=== PATIENT | male | born 1950 | race Caucasian/White ===

== ENCOUNTER → 2018-03-27 | Outpatient (CLI) | payer MEDICARE, OTHER | LOC: M PAIN 10:00 | DX: M79.604 Pain in right leg (principal); M79.2 Neuralgia and neuritis, unspecified; E11.9 Type 2 diabetes mellitus without complications; Z79.899 Other long term (current) drug therapy; Z87.891 Personal history of nicotine dependence | CPT/HCPCS: G0463 ==

== ENCOUNTER → 2018-04-17 | Outpatient (CLI) | payer MEDICARE, OTHER | LOC: M PAIN 09:30 | DX: M79.604 Pain in right leg (principal); M79.2 Neuralgia and neuritis, unspecified; Z79.891 Long term (current) use of opiate analgesic; Z79.899 Other long term (current) drug therapy; Z87.891 Personal history of nicotine dependence; Z89.512 Acquired absence of left leg below knee | CPT/HCPCS: G0463 ==

== ENCOUNTER → 2018-06-13 | Outpatient (CLI) | payer MEDICARE, OTHER | LOC: M PAIN 11:30 | DX: G54.6 Phantom limb syndrome with pain (principal); M79.605 Pain in left leg; T87.89 Other complications of amputation stump; E11.9 Type 2 diabetes mellitus without complications; Z87.891 Personal history of nicotine dependence; Z79.899 Other long term (current) drug therapy; Y83.5 Amputation of limb(s) as the cause of abnormal reaction of the patient, or of later complication, without mention of misadventure at the time of the procedure | CPT/HCPCS: G0463 ==

== ENCOUNTER → 2018-06-26 | Outpatient (CLI) | payer MEDICARE, OTHER | LOC: M PAIN 15:45 | DX: M79.2 Neuralgia and neuritis, unspecified (principal); M79.605 Pain in left leg; T87.89 Other complications of amputation stump; G89.29 Other chronic pain; L90.5 Scar conditions and fibrosis of skin; E11.9 Type 2 diabetes mellitus without complications; Z79.899 Other long term (current) drug therapy; Z89.512 Acquired absence of left leg below knee; Z87.891 Personal history of nicotine dependence | CPT/HCPCS: G0463 ==

== ENCOUNTER → 2018-06-27 | Outpatient (CLI) | payer MEDICARE, OTHER ==
[~2018-06-27] MED LIST: BUPIVACAINE HCL 0.25% 30 ML VIAL As Ordered; LIDOCAINE 1% SDV INJ 30 ML VIAL As Ordered; TRIAMCINOLONE ACETONIDE SUSP 40 MG/ML VIAL (J3301) As Ordered; diazePAM 5 MG TAB As Ordered; oxyCODONE 5MG TAB As Ordered
== END ==
LOC: M PAIN 11:30
DX: L90.5 Scar conditions and fibrosis of skin (principal); E11.9 Type 2 diabetes mellitus without complications; Z79.899 Other long term (current) drug therapy; Z87.891 Personal history of nicotine dependence
CPT/HCPCS: J3301

== ENCOUNTER → 2018-07-18 | Outpatient (CLI) | payer MEDICARE, OTHER | LOC: M PAIN 09:30 | DX: G57.92 Unspecified mononeuropathy of left lower limb (principal); G89.29 Other chronic pain; G54.6 Phantom limb syndrome with pain; L90.5 Scar conditions and fibrosis of skin; E11.9 Type 2 diabetes mellitus without complications; Z79.899 Other long term (current) drug therapy; Z87.891 Personal history of nicotine dependence | CPT/HCPCS: G0463 ==

== ENCOUNTER → 2018-07-23 | Outpatient (CLI) | payer MEDICARE, OTHER ==
[~2018-07-23] MED LIST changes: +ISOVUE-M 300 61% 15ML VIAL (Q9967) As Ordered; +MIDAZOLAM INJ 2 MG/2 ML VIAL (J2250) As Ordered; -diazePAM 5 MG TAB As Ordered; +fentaNYL 100 MCG/2 ML INJECTION (J3010) As Ordered; -oxyCODONE 5MG TAB As Ordered
[2018-07-23 14:20] LABS: BEDSIDE GLUCOSE 104 MG/DL (80-115)
== END ==
LOC: M PAIN 13:00
DX: G89.29 Other chronic pain (principal); G57.92 Unspecified mononeuropathy of left lower limb; E11.9 Type 2 diabetes mellitus without complications; Z79.899 Other long term (current) drug therapy; Z89.512 Acquired absence of left leg below knee
CPT/HCPCS: J3301

== ENCOUNTER → 2018-09-16 | Outpatient (CLI) | payer MEDICARE, OTHER ==
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
== END ==
LOC: M PAIN 13:15
PROVIDERS: ATTEND Anesthesiology
DX: M79.605 Pain in left leg (principal); T87.89 Other complications of amputation stump; M79.2 Neuralgia and neuritis, unspecified; E11.9 Type 2 diabetes mellitus without complications; E78.00 Pure hypercholesterolemia, unspecified; Z79.899 Other long term (current) drug therapy; Z87.891 Personal history of nicotine dependence

== ENCOUNTER → 2018-11-24 | Outpatient (CLI) | payer MEDICARE, OTHER ==
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
== END ==
LOC: M PAIN 14:30
PROVIDERS: ATTEND Anesthesiology
DX: M79.605 Pain in left leg (principal); T87.89 Other complications of amputation stump; G89.29 Other chronic pain; E11.9 Type 2 diabetes mellitus without complications; E78.00 Pure hypercholesterolemia, unspecified; Z79.84 Long term (current) use of oral hypoglycemic drugs; Z79.899 Other long term (current) drug therapy; Z87.891 Personal history of nicotine dependence

== ENCOUNTER → 2018-12-29 | Outpatient (CLI) | payer MEDICARE, OTHER ==
[~2018-12-29] MED LIST changes: -BUPIVACAINE HCL 0.25% 30 ML VIAL As Ordered; +FERR32TA PO; -ISOVUE-M 300 61% 15ML VIAL (Q9967) As Ordered; -LIDOCAINE 1% SDV INJ 30 ML VIAL As Ordered; +METF500T4 PO; -MIDAZOLAM INJ 2 MG/2 ML VIAL (J2250) As Ordered; +SIMV40TA2 PO; +TRAZ-160 PO; -TRIAMCINOLONE ACETONIDE SUSP 40 MG/ML VIAL (J3301) As Ordered; -fentaNYL 100 MCG/2 ML INJECTION (J3010) As Ordered
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
== END ==
LOC: M PAIN 11:45
PROVIDERS: ATTEND Anesthesiology
DX: M79.605 Pain in left leg (principal); T87.89 Other complications of amputation stump; M79.2 Neuralgia and neuritis, unspecified; G89.29 Other chronic pain; E11.9 Type 2 diabetes mellitus without complications; E78.00 Pure hypercholesterolemia, unspecified; Z79.84 Long term (current) use of oral hypoglycemic drugs; Z79.899 Other long term (current) drug therapy; Z87.891 Personal history of nicotine dependence

== ENCOUNTER 2019-01-19 10:26 | Day surgery (SDC) | payer MEDICARE, OTHER ==
[~2019-01-19] VITALS: Ht 180.3 cm; Wt 92.9 kg
[~2019-01-19 10:26] MED LIST changes: +D 1010004 PO; +GABA-843 PO; +HYDR-4571 PO; +LIDOCAINE 2% INJ 100 MG/5 ML SDV (FOR ANES.) As Ordered ONE; +MIDAZOLAM INJ 2 MG/2 ML VIAL (J2250) As Ordered ONE; +ONDANSETRON 4MG/2ML VIAL (J2405) As Ordered ONE; +PROPOFOL 200 MG/20 ML VIAL As Ordered ONE; +[UNRECOGNIZED DRUG - CODE] PO; +fentaNYL 100 MCG/2 ML INJECTION (J3010) As Ordered ONE
[2019-01-19] MEDS ORDERED: LR 1,000 ML IV ONE (10:45)
[2019-01-19] MEDS ORDERED: ceFAZolin SOD 1 GM in D5W MINI-BAG PLUS 50 ML IV ONE ×2 (11:00→21:00)
[2019-01-19] MEDS ORDERED: LIDOCAINE W/EPINEPHRINE 1% 20ML VIAL As Ordered ONE (11:33)
[2019-01-19 12:59] LABS: BASO # 0.1 10^3/uL (0.0-0.2); BASO % 0.8 % (0.0-1.0); EOS # 0.1 10^3/uL (0.0-0.50); EOS % 1.5 % (0.0-3.0); HEMATOCRIT 35.3 % (42.0-52.0); HEMOGLOBIN 11.9 g/dl (13.5-17.5); LYMPH # 1.9 10^3/uL (1.5-4.5); LYMPH % 25.2 % (24.0-44.0); MEAN CORPUSCULAR HEMOGLOBIN 34.7 pg (27.0-33.0); MEAN CORPUSCULAR HGB CONC 33.7 g/dl (32.0-36.5); MEAN CORPUSCULAR VOLUME 102.9 fl (80.0-96.0); MONO # 0.7 10^3/uL (0.0-0.8); NEUTROPHILS # 4.8 10^3/uL (1.8-7.7); NEUTROPHILS % 62.8 % (36.0-66.0); PLATELET COUNT, AUTOMATED 339 10^3/uL (150-450); RED BLOOD COUNT 3.43 10^6/uL (4.30-6.10); WHITE BLOOD COUNT 7.6 10^3/uL (4.0-10.0)
[2019-01-19 13:10] LABS: INR 0.98; PROTHROMBIN TIME 13.1 SECONDS (12.1-14.4)
[2019-01-19] MEDS ORDERED: NORCO, ANEXSIA 5/325MG TABLET (HYDROcodone/ACETAMINOPHEN) PO PRN (15:30)
[2019-01-19] MEDS ORDERED: PERCOCET 5MG/325MG TAB PO PRN (15:30)
[2019-01-19] MEDS ORDERED: LR 1,000 ML IV SCH (15:30)
[2019-01-19] MEDS ORDERED: fentaNYL 100 MCG/2 ML INJECTION (J3010) IV PRN (15:30)
[2019-01-19] MEDS ORDERED: ONDANSETRON 4MG/2ML VIAL (J2405) IV PRN (15:30)
--- NOTE | 2019-01-19 15:54 | REP ---
Partial thoracic spine: Single view. History: Neuralgia. Pain in the left leg. 9 minutes 19 seconds of fluoroscopy time is reported. Findings: A single last image hold fluoroscopically obtained spot radiograph of the lower thoracic spine documents dorsal column stimulator lead position. Electronically Signed by Vance Ramirez MD 01/19/2019 07:33 P
[2019-01-19 16:15] VITALS: BP 136/68
[2019-01-19] MEDS ORDERED: GLUCAGON FOR INJ 1 MG VIAL (J1610) SC PRN (16:30)
[2019-01-19] MEDS ORDERED: GLUCOSE 4 GM CHEW TABLET PO PRN (16:30)
[2019-01-19] MEDS ORDERED: DEXTROSE 50% 50 ML SYRINGE IV PRN (16:30)
[2019-01-19 16:45] VITALS: BP 132/78
[2019-01-19] MEDS: FERROUS GLUCONATE 324 MG TAB PO SCH (16:50)
[2019-01-19] MEDS: VITAMIN D 1,000 INTERNATIONAL UNITS TABLET PO SCH (16:50)
[2019-01-19] MEDS: HumaLOG INSULIN (NovoLOG) PER UNIT SC SCH (17:30)
--- NOTE | 2019-01-19 17:35 | CR ---
DATE OF CONSULTATION: 01/19/2019 REFERRING PHYSICIAN: Dr. Harley PRIMARY CARE PROVIDER: Dr. Carl REASON FOR CONSULTATION: Medical management. HISTORY OF PRESENT ILLNESS: The patient is a 68-year-old male with a past medical history significant for diabetes, dyslipidemia, who presented to [facility] on 01/19/2019 for spinal cord stimulator for his chronic stump pain. The patient is being followed with the pain clinic for his left stump. The patient had a left below knee amputation due to trauma in [place]. The patient tolerated the procedure well. At the time of the encounter, the patient denies any acute complaints. The patient stated that he feels like he is his normal self. ALLERGIES: No known drug allergies. PAST MEDICAL HISTORY: 1. Diabetes. 2. Dyslipidemia. PAST SURGICAL HISTORY: 1. Left below knee amputation. SOCIAL HISTORY: The patient quit smoking more than 40 years ago. The patient used to smoke one pack a day for 20 years. The patient admitted that he had a very heavy alcohol consumption history in the past. He admits that he was an alcoholic many years ago but he quit drinking in 1981. The patient had tried recreational drugs when he was in [place], however, in the past 30 years or more he has not had any usage of the illicit drugs. REVIEW OF SYSTEMS: GENERAL: No fever. No chills. HEENT: No vision changes. No auditory changes. CARDIOVASCULAR: No chest pain. No palpitations. RESPIRATORY: No shortness of breath. No cough. No sputum production. GASTROINTESTINAL: No nausea. No vomiting. No abdominal pain. MUSCULOSKELETAL: The patient has chronic pain at the left stump. The patient is getting the spinal cord stimulator today by Dr. Harley. NEUROLOGIC: Denied any numbness or tingling. OBJECTIVE: VITAL SIGNS: Temperature 98, pulse 54, respirations 18, blood pressure 134/83, pulse oximetry 97% on room air. GENERAL: No sign of acute distress. Alert and oriented times three. HEENT: Normocephalic, atraumatic. Extraocular motors are grossly intact. CARDIOVASCULAR: Positive S1, S2. Regular rate. LUNGS: Clear to auscultation bilaterally. ABDOMEN: Soft, nontender, nondistended. Bowel sounds present. EXTREMITIES: The patient has a left below knee amputation. No lower extremity swelling. NEUROLOGIC: Sensation to fine touch is grossly intact. Muscle strength 5/5. LABORATORY DATA: WBC is 7.6, hemoglobin 11.9, hematocrit 35.3, platelet count is 339. PT is 13.1, INR is 0.98, PTT is 28. ASSESSMENT AND PLAN: 1. Chronic stump pain. The patient had a left below knee amputation. The patient had trauma when he was in [place] resulting in below knee amputation. Spinal cord stimulator placement by Dr. Harley. We will defer the postsurgical care, such as diet, activity level, pain control per pain management team. 2. Diabetes. The patient will be on consistent carbohydrate diet. The patient will be on sliding scale. 3. Dyslipidemia. Continue statin. 4. Deep vein thrombosis (DVT) prophylaxis. Per primary team. MTDD
[2019-01-19 17:45] VITALS: BP 145/75
[2019-01-19 18:42] VITALS: BP 131/94
[2019-01-19] MEDS: GABAPENTIN 300 MG CAP PO SCH (20:54)
[2019-01-19] MEDS: NORCO, ANEXSIA 5/325MG TABLET (HYDROcodone/ACETAMINOPHEN) PO PRN (20:55)
[2019-01-19] MEDS ORDERED: HumaLOG INSULIN (NovoLOG) PER UNIT SC SCH (21:00)
[2019-01-19 22:00] VITALS: BP 168/96
[2019-01-20 02:00] VITALS: BP 134/75
[2019-01-20] MEDS ORDERED: ceFAZolin SOD 1 GM in D5W MINI-BAG PLUS 50 ML IV ONE (05:00)
[2019-01-20 06:00] VITALS: BP 174/83
[2019-01-20 06:19] LABS: HEMATOCRIT 34.1 % (42.0-52.0); HEMOGLOBIN 11.3 g/dl (13.5-17.5); MEAN CORPUSCULAR HEMOGLOBIN 34.1 pg (27.0-33.0); MEAN CORPUSCULAR HGB CONC 33.1 g/dl (32.0-36.5); PLATELET COUNT, AUTOMATED 318 10^3/uL (150-450); RED BLOOD COUNT 3.31 10^6/uL (4.30-6.10); WHITE BLOOD COUNT 6.9 10^3/uL (4.0-10.0)
[2019-01-20 06:46] LABS: BLOOD UREA NITROGEN 15 MG/DL (7-18); CALCIUM LEVEL 8.4 MG/DL (8.8-10.2); CARBON DIOXIDE LEVEL 28 MEQ/L (21-32); CHLORIDE LEVEL 108 MEQ/L (98-107); CREATININE FOR GFR 0.72 MG/DL (0.70-1.30); GLOMERULAR FILTRATION RATE > 60.0 (>49); GLUCOSE, FASTING 104 MG/DL (70-100); POTASSIUM SERUM 4.1 MEQ/L (3.5-5.1); SODIUM LEVEL 140 MEQ/L (136-145); THYROID STIMULATING HORMONE 0.812 uIU/ML (0.358-3.740)
[2019-01-20 07:15] LABS: HEMOGLOBIN A1c 6.3 %
[2019-01-20] MEDS: HumaLOG INSULIN (NovoLOG) PER UNIT SC SCH (07:30)
[2019-01-20] MEDS: FERROUS GLUCONATE 324 MG TAB PO SCH (08:49)
[2019-01-20] MEDS: VITAMIN D 1,000 INTERNATIONAL UNITS TABLET PO SCH (08:49)
[2019-01-20] MEDS: GABAPENTIN 300 MG CAP PO SCH (08:49)
[2019-01-20] MEDS: NORCO, ANEXSIA 5/325MG TABLET (HYDROcodone/ACETAMINOPHEN) PO PRN (08:58)
[2019-01-20] MEDS ORDERED: DULoxetine 30 MG CAP (CYMBALTA) PO SCH (09:00)
[2019-01-20] MEDS ORDERED: SIMVASTATIN 40 MG TAB PO SCH (09:00)
--- NOTE | 2019-01-20 10:20 | IPNPDOC ---
Date Seen The patient was seen on 01/20/19. Progress Note SUBJECTIVE: No issues overnight. stimulator to be programmed prior to discharge. OBJECTIVE: VITAL SIGNS: pls see below GENERAL: No sign of acute distress. Alert and oriented times three. HEENT: Normocephalic, atraumatic. Extraocular motors are grossly intact. CARDIOVASCULAR: Positive S1, S2. Regular rate. LUNGS: Clear to auscultation bilaterally. ABDOMEN: Soft, nontender, nondistended. Bowel sounds present. EXTREMITIES: The patient has a left below knee amputation. No lower extremity swelling. NEUROLOGIC: Sensation to fine touch is grossly intact. Muscle strength 5/5. LABORATORY DATA: pls see below On admission: WBC is 7.6, hemoglobin 11.9, hematocrit 35.3, platelet count is 339. PT is 13.1, INR is 0.98, PTT is 28. ASSESSMENT AND PLAN:The patient is a 68-year-old male with a past medical history significant for diabetes, dyslipidemia, who presented to [facility] on 01/19/2019 for spinal cord stimulator for his chronic stump pain. The patient is being followed with the pain clinic for his left stump. The patient had a left below knee amputation due to trauma in [place]. The patient tolerated the procedure well. At the time of the encounter, the patient denies any acute complaints. The patient stated that he feels like he is his normal self. 1. Chronic stump pain.s/p Spinal cord stimulator placement by Dr. Harley. The patient had a left below knee amputation. The patient had trauma when he was in [place] resulting in below knee amputation. s/p Spinal cord stimulator placement by Dr. Harley. We will defer the postsurgical care, such as diet, activity level, pain control per pain management team. 2. Diabetes. The patient will be on consistent carbohydrate diet. The patient will be on sliding scale. 3. Dyslipidemia. Continue statin. 4. Deep vein thrombosis (DVT) prophylaxis. Per primary team. disposition: dc home if cleared by pain mgt. A-FIB/CHADSVASC A-FIB History Current/History of A-Fib/PAF?: No Current Oral Anticoagulant The: No VS, I&O, 24H, Fishbone Vital Signs/I&O Vital Signs Date Time Temp Pulse Resp B/P (MAP) Pulse Ox O2 Delivery O2 Flow Rate FiO2 01/20/19 08:58 14 5/14/19 06:00 98.3 48 174/83 (113) 98 I&O- Last 24 Hours up to 6 AM 01/20/19 06:00 Intake Total 2300 ml Output Total 1400 ml Balance 900 ml Laboratory Data 24H LABS Laboratory Tests 2 01/19/19 11:11: Bedside Glucose (Misc Panel) 112 01/19/19 12:32: Immature Granulocyte % (Auto) 0.7, White Blood Count 7.6, Red Blood Count 3.43L, Hemoglobin 11.9L, Hematocrit 35.3L, Mean Corpuscular Volume 102.9H, Mean Corpuscular Hemoglobin 34.7H, Mean Corpuscular Hemoglobin Concent 33.7, Red Cell Distribution Width 13.5, Platelet Count 339, Neutrophils (%) (Auto) 62.8, Lymphocytes (%) (Auto) 25.2, Monocytes (%) (Auto) 9.0H, Eosinophils (%) (Auto) 1.5, Basophils (%) (Auto) 0.8, Neutrophils # (Auto) 4.8, Lymphocytes # (Auto) 1.9, Monocytes # (Auto) 0.7, Eosinophils # (Auto) 0.1, Basophils # (Auto) 0.1, Nucleated Red Blood Cells % (auto) 0.0, Prothrombin Time 13.1, Prothromb Time International Ratio 0.98, Activated Partial Thromboplast Time 28.0 01/19/19 16:42: Bedside Glucose (Misc Panel) 92 01/19/19 19:38: Bedside Glucose (Misc Panel) 128H 01/20/19 05:14: Nucleated Red Blood Cells % (auto) 0.4H, Anion Gap 4L, Glomerular Filtration Rate > 60.0, Estimated Mean Plasma Glucose 134H, Hemoglobin A1c 6.3, Blood Urea Nitrogen 15, Creatinine 0.72, Sodium Level 140, Potassium Level 4.1, Chloride Level 108H, Carbon Dioxide Level 28, Calcium Level 8.4L, Thyroid Stimulating Hormone (TSH) 0.812 CBC/BMP Laboratory Tests 01/19/19 12:32 Red Blood Count 3.43 L, Mean Corpuscular Volume 102.9 H, Mean Corpuscular Hemoglobin 34.7 H, Mean Corpuscular Hemoglobin Concent 33.7, Red Cell Distribution Width 13.5, Neutrophils (%) (Auto) 62.8, Lymphocytes (%) (Auto) 25.2, Monocytes (%) (Auto) 9.0 H, Eosinophils (%) (Auto) 1.5, Basophils (%) (Auto) 0.8, Neutrophils # (Auto) 4.8, Lymphocytes # (Auto) 1.9, Monocytes # (Auto) 0.7, Eosinophils # (Auto) 0.1, Basophils # (Auto) 0.1 01/20/19 05:14 Red Blood Count 3.31 L, Mean Corpuscular Volume 103.0 H, Mean Corpuscular Hemoglobin 34.1 H, Mean Corpuscular Hemoglobin Concent 33.1, Red Cell Distribution Width 13.4, Calcium Level 8.4 L CHELO BANUELOS MD January 20, 2019 10:20
--- NOTE | 2019-01-20 10:24 | DS.PDOC ---
Discharge Summary General Date of Admission 01/19/19 Date of Discharge 01/20/19 Discharge Summary PROCEDURES PERFORMED DURING STAY:SPINAL CORD STIMULATOR 01/19/19 PUTTY GLAZER: DR CASTORENA, ANESTHESIA PAIN SERVICE DISCHARGE DIAGNOSES: CHRONIC LOWER EXTREMITY STUMP PAIN S/P BKA S/P SPINAL CORD STIMULATOR PLACEMENT 01/19/19 DIABETES DYSLIPIDEMIA DISCHARGE MEDICATIONS: PLS SEE BELOW DISCHARGE INSTRUCTIONS: POSTOP MGT PER ANESTHESIA DR. CASTORENA HISTORY OF PRESENTING ILLNESS: The patient is a 68-year-old male with a past medical history significant for diabetes, dyslipidemia, who presented to [facility] on 01/19/2019 for spinal cord stimulator for his chronic stump pain. The patient is being followed with the pain clinic for his left stump. The patient had a left below knee amputation due to trauma in [place]. The patient tolerated the procedure well. At the time of the encounter, the patient denies any acute complaints. The patient stated that he feels like he is his normal self. HOSPITAL COURSE: 1. Chronic stump pain.s/p Spinal cord stimulator placement by Dr. Castorena on 01/19/19.. The patient had a left below knee amputation. The patient had trauma when he was in [place] resulting in below knee amputation. s/p Spinal cord stimulator placement by Dr. Castorena. We will defer the postsurgical care, such as diet, activity level, pain control per pain management team. 2. Diabetes. The patient will be on consistent carbohydrate diet. The patient will be on sliding scale. 3. Dyslipidemia. Continue statin. 4. Deep vein thrombosis (DVT) prophylaxis. Per primary team. VITAL SIGNS: pls see below GENERAL: No sign of acute distress. Alert and oriented times three. HEENT: Normocephalic, atraumatic. Extraocular motors are grossly intact. CARDIOVASCULAR: Positive S1, S2. Regular rate. LUNGS: Clear to auscultation bilaterally. ABDOMEN: Soft, nontender, nondistended. Bowel sounds present. EXTREMITIES: The patient has a left below knee amputation. No lower extremity swelling. NEUROLOGIC: Sensation to fine touch is grossly intact. Muscle strength 5/5. LABORATORY DATA: pls see below On admission: WBC is 7.6, hemoglobin 11.9, hematocrit 35.3, platelet count is 339. PT is 13.1, INR is 0.98, PTT is 28. IMAGING STUDIES: PLS SEE BELOW TIME SPENT ON DISCHARGE: 30 minutes. Vital Signs/I&Os Vital Signs Date Time Temp Pulse Resp B/P (MAP) Pulse Ox O2 Delivery O2 Flow Rate FiO2 01/20/19 08:58 14 01/20/19 06:00 98.3 48 174/83 (113) 98 I&O- Last 24 Hours up to 6 AM 01/20/19 06:00 Intake Total 2300 ml Output Total 1400 ml Balance 900 ml Laboratory Data Labs 24H Laboratory Tests 2 01/19/19 11:11: Bedside Glucose (Misc Panel) 112 01/19/19 12:32: Immature Granulocyte % (Auto) 0.7, White Blood Count 7.6, Red Blood Count 3.43L, Hemoglobin 11.9L, Hematocrit 35.3L, Mean Corpuscular Volume 102.9H, Mean Corpuscular Hemoglobin 34.7H, Mean Corpuscular Hemoglobin Concent 33.7, Red Cell Distribution Width 13.5, Platelet Count 339, Neutrophils (%) (Auto) 62.8, Lymphocytes (%) (Auto) 25.2, Monocytes (%) (Auto) 9.0H, Eosinophils (%) (Auto) 1.5, Basophils (%) (Auto) 0.8, Neutrophils # (Auto) 4.8, Lymphocytes # (Auto) 1.9, Monocytes # (Auto) 0.7, Eosinophils # (Auto) 0.1, Basophils # (Auto) 0.1, Nucleated Red Blood Cells % (auto) 0.0, Prothrombin Time 13.1, Prothromb Time International Ratio 0.98, Activated Partial Thromboplast Time 28.0 01/19/19 16:42: Bedside Glucose (Misc Panel) 92 01/19/19 19:38: Bedside Glucose (Misc Panel) 128H 01/20/19 05:14: Nucleated Red Blood Cells % (auto) 0.4H, Anion Gap 4L, Glomerular Filtration Rate > 60.0, Estimated Mean Plasma Glucose 134H, Hemoglobin A1c 6.3, Blood Urea Nitrogen 15, Creatinine 0.72, Sodium Level 140, Potassium Level 4.1, Chloride Level 108H, Carbon Dioxide Level 28, Calcium Level 8.4L, Thyroid Stimulating Hormone (TSH) 0.812 CBC/BMP Laboratory Tests 01/19/19 12:32 Red Blood Count 3.43 L, Mean Corpuscular Volume 102.9 H, Mean Corpuscular Hemoglobin 34.7 H, Mean Corpuscular Hemoglobin Concent 33.7, Red Cell Distr ibution Width 13.5, Neutrophils (%) (Auto) 62.8, Lymphocytes (%) (Auto) 25.2, Monocytes (%) (Auto) 9.0 H, Eosinophils (%) (Auto) 1.5, Basophils (%) (Auto) 0.8, Neutrophils # (Auto) 4.8, Lymphocytes # (Auto) 1.9, Monocytes # (Auto) 0.7, Eosinophils # (Auto) 0.1, Basophils # (Auto) 0.1 01/20/19 05:14 Red Blood Count 3.31 L, Mean Corpuscular Volume 103.0 H, Mean Corpuscular Hem oglobin 34.1 H, Mean Corpuscular Hemoglobin Concent 33.1, Red Cell Distribution Width 13.4, Calcium Level 8.4 L FSBS Laboratory Tests Test 01/19/19 11:11 01/19/19 16:42 01/19/19 19:38 Range/Units Bedside Glucose (Misc Panel) 112 92 128 80-115 MG/DL Discharge Medications Scheduled Cholecalciferol (Vitamin D3) (Vitamin D3) 1,000 Unit Capsule, 1,000 UNIT PO DAILY, (Reported) Ferrous Gluconate (Ferrous Gluconate) 324 Mg Tablet, 324 MG PO DAILY, (Reported) Folic Acid/Mv,Iron,Min/Lutein (Certa Plus Tablet) 1 Each Tablet, 1 TAB PO DAILY, (Reported) Gabapentin (Gabapentin) 300 Mg Capsule, 600 MG PO TID, (Reported) Metformin HCl (Metformin HCl ER) 500 Mg Tab.er.24h, 500 MG PO DAILY, (Reported) Simvastatin (Simvastatin) 40 Mg Tablet, 40 MG PO DAILY, (Reported) Trazodone HCl (Trazodone HCl) 50 Mg Tablet, 50 MG PO DAILY, (Reported) Allergies Coded Allergies: No Known Allergies (Unverified , 01/19/19) CHELO BANUELOS MD January 20, 2019 10:24
--- NOTE | 2019-01-26 20:46 | ROPAIN ---
DATE OF PROCEDURE: 01/19/2019 PREOPERATIVE DIAGNOSES: 1. Left lower extremity neuralgia. 2. Left lower extremity pain. POSTOPERATIVE DIAGNOSES: 1. Left lower extremity neuralgia. 2. Left lower extremity pain. PROCEDURE: Spinal column stimulator trial. SURGEON: Dr. Dionicio Harley ANESTHESIA: Local with monitored anesthesia care. PREOPERATIVE NOTE: Mr. Brown is a 68-year-old male patient with history of left lower extremity pain. Patient suffered an amputation of the left leg and he started to develop stump pain with phantom pain and also pain at the left lower extremity. He has tried multiple medications and interventional therapy and the pain has persisted. We have agreed with the patient in doing a spinal column stimulator trial, the reason why he is in the operating room today. Patient denies fever, chills, changes in urinary or bowel control. PROCEDURE NOTE: After consent was taken, patient was brought to the procedure room and placed in prone position. The thoracolumbar was cleaned with Betadine solution and draped aseptically. Procedure was done under sterile conditions. Patient received cefazolin 1 gram intravenous (IV). Target point was selected at the intralaminar level of T12-L1. Lidocaine 1% was used to numb the skin and the subcutaneous tissue below it. An Epimed Tuohy needle was advanced until the right lamina of L1 was touched and then by the loss of resistance technique the epidural space was reached 7 cm deep into the skin by the loss of resistance technique. An 8-contact lead from opvizor was advanced through this needle and advanced at the posterior and medial aspect of the epidural space until we reached the level of T8. A decision was made to place a second lead. Target was selected at the left lamina of L1. Local anesthesia was used. A second Epimed needle, 17-gauge, was advanced until the left lamina was touched, and then by the loss of resistance technique the epidural space was reached 7 cm deep into the skin by the loss of resistance technique. A second 8-contact from opvizor was advanced through the second needle and advanced parallel to the first one at the level of T8. Extension cables were attached to the leads, which were attached to the computer system of opvizor and we started stimulation. Position of the leads were changed. We also changed impedance, volt issues, contact of the leads used. Final position of the leads were in the position of T8, T9 and T10. We made x-ray films of the position of the leads for further reference. When proper stimulation of the pain was achieved, we removed the extension cable, removed the stylus and secured the leads to the patient's skin using first Steri-Strips and then Tegaderm. There was no evidence of blood, paresthesias or cerebrospinal fluid. There were no complications during the procedure. Patient is sent to the recovery room to start the trial. LUISA
== END 2019-01-20 10:50 | disposition home or self-care (01) ==
LOC: M SDC 10:26 → M MS5PR 16:10 → M SDC 01-20 10:50
PROVIDERS: ATTEND Anesthesiology
DX: G57.92 Unspecified mononeuropathy of left lower limb (principal); M79.605 Pain in left leg; E11.9 Type 2 diabetes mellitus without complications; E78.5 Hyperlipidemia, unspecified; D64.9 Anemia, unspecified; Z79.899 Other long term (current) drug therapy; Z79.84 Long term (current) use of oral hypoglycemic drugs; Z89.512 Acquired absence of left leg below knee; Z87.891 Personal history of nicotine dependence; Z87.81 Personal history of (healed) traumatic fracture
CPT/HCPCS: 36415; 63650; 80048; 83036; 84443; 85025; 85027; 85610; 85730; C1778; J0690; J2250; J2405; J3010

== ENCOUNTER → 2019-01-23 | Outpatient (CLI) | payer MEDICARE, OTHER ==
[~2019-01-23] MED LIST changes: -LIDOCAINE 2% INJ 100 MG/5 ML SDV (FOR ANES.) As Ordered ONE; -MIDAZOLAM INJ 2 MG/2 ML VIAL (J2250) As Ordered ONE; -ONDANSETRON 4MG/2ML VIAL (J2405) As Ordered ONE; -PROPOFOL 200 MG/20 ML VIAL As Ordered ONE; -fentaNYL 100 MCG/2 ML INJECTION (J3010) As Ordered ONE
--- NOTE | 2019-01-24 07:19 | REP ---
Partial thoracic spine series: Two views. History: Lead pole. 7 seconds of fluoroscopy time is reported. Findings: Two last image hold fluoroscopically obtained spot radiographs of the thoracolumbar junction document dorsal column stimulator lead position. Electronically Signed by Vance Ramirez MD 01/24/2019 11:48 A
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
== END ==
LOC: M PAIN 10:30
PROVIDERS: ATTEND Anesthesiology
DX: M79.605 Pain in left leg (principal); T87.89 Other complications of amputation stump; E11.9 Type 2 diabetes mellitus without complications; E78.00 Pure hypercholesterolemia, unspecified; Z79.84 Long term (current) use of oral hypoglycemic drugs; Z79.899 Other long term (current) drug therapy; Z87.891 Personal history of nicotine dependence

== ENCOUNTER → 2019-03-02 | Outpatient (CLI) | payer MEDICARE, OTHER ==
[~2019-03-02] MED LIST changes: -TRAZ-160 PO; +TRAZ-252 PO
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
== END ==
LOC: M PAIN 09:30
PROVIDERS: ATTEND Anesthesiology
DX: M79.605 Pain in left leg (principal); T87.89 Other complications of amputation stump; E11.9 Type 2 diabetes mellitus without complications; D64.9 Anemia, unspecified; E78.00 Pure hypercholesterolemia, unspecified; Z87.891 Personal history of nicotine dependence; Z89.512 Acquired absence of left leg below knee; Z79.891 Long term (current) use of opiate analgesic; Z79.84 Long term (current) use of oral hypoglycemic drugs; Z79.899 Other long term (current) drug therapy

== ENCOUNTER → 2019-04-02 | Outpatient (CLI) | payer MEDICARE, OTHER ==
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
== END ==
LOC: M PAIN 08:30
PROVIDERS: ATTEND Anesthesiology
DX: M79.605 Pain in left leg (principal); T87.89 Other complications of amputation stump; M79.2 Neuralgia and neuritis, unspecified; E11.9 Type 2 diabetes mellitus without complications; D64.9 Anemia, unspecified; E78.00 Pure hypercholesterolemia, unspecified; Z87.891 Personal history of nicotine dependence; Z79.891 Long term (current) use of opiate analgesic; Z79.84 Long term (current) use of oral hypoglycemic drugs; Z79.899 Other long term (current) drug therapy

== ENCOUNTER 2019-04-20 10:37 | Day surgery (SDC) | payer MEDICARE, OTHER ==
[~2019-04-20] VITALS: Ht 182.9 cm; Wt 91.2 kg
[~2019-04-20 10:37] MED LIST changes: +LR 1,000 ML IV ONE; +ceFAZolin SOD 1 GM in D5W MINI-BAG PLUS 50 ML IV ONE
[2019-04-20] MEDS ORDERED: fentaNYL 100 MCG/2 ML INJECTION (J3010) As Ordered ONE ×2 (10:54→13:25)
[2019-04-20] MEDS ORDERED: PROPOFOL 200 MG/20 ML VIAL As Ordered ONE (10:54)
[2019-04-20] MEDS ORDERED: MIDAZOLAM INJ 2 MG/2 ML VIAL (J2250) As Ordered ONE ×2 (10:54→12:29)
[2019-04-20] MEDS ORDERED: LIDOCAINE W/EPINEPHRINE 1% 20ML VIAL As Ordered ONE (11:51)
[2019-04-20] MEDS ORDERED: ACETAMINOPHEN 1000MG 100ML IV BTL (OFIRMEV) (J0131 PER 10MG) As Ordered ONE (13:26)
--- NOTE | 2019-04-20 14:34 | REP ---
Partial thoracic spine series: Two views. History: Pain in the left leg. Neuralgia. 13 minutes 9 seconds of fluoroscopy time is reported. Findings: A sequence of two last image hold fluoroscopically obtained spot radiographs of the lower thoracic spine document dorsal column stimulator lead position. Electronically Signed by Vance Ramirez MD 04/20/2019 02:25 P
[2019-04-20] MEDS ORDERED: METOCLOPRAMIDE INJ 10MG/2ML VIAL (J2765) IV PRN (14:45)
[2019-04-20] MEDS ORDERED: ONDANSETRON 4MG/2ML VIAL (J2405) IV PRN (14:45)
[2019-04-20] MEDS ORDERED: MEPERIDINE INJ 25 MG/ML VIAL (J2175) IV PRN (14:45)
[2019-04-20] MEDS ORDERED: NORCO, ANEXSIA 5/325MG TABLET (HYDROcodone/ACETAMINOPHEN) PO PRN (14:45)
[2019-04-20] MEDS ORDERED: fentaNYL 100 MCG/2 ML INJECTION (J3010) IV PRN (14:45)
[2019-04-20] MEDS ORDERED: LR 1,000 ML IV SCH (14:45)
[2019-04-20] MEDS ORDERED: PERCOCET 5MG/325MG TAB PO PRN (14:45)
[2019-04-20 15:31] VITALS: BP 138/78
[2019-04-20 15:58] VITALS: BP 141/81
[2019-04-20] MEDS ORDERED: GLUCOSE 4 GM CHEW TABLET PO PRN (16:00)
[2019-04-20] MEDS ORDERED: GLUCAGON FOR INJ 1 MG VIAL (J1610) SC PRN (16:00)
[2019-04-20] MEDS ORDERED: DEXTROSE 50% 50 ML SYRINGE IV PRN (16:00)
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
[2019-04-20 17:08] VITALS: BP 139/82
[2019-04-20] MEDS: HumaLOG INSULIN (NovoLOG) PER UNIT SC SCH (17:19)
[2019-04-20 17:55] VITALS: BP 141/82
[2019-04-20] MEDS: GABAPENTIN 300 MG CAP PO SCH ×2 (18:14→20:06)
[2019-04-20 18:48] VITALS: BP 165/84
[2019-04-20 20:00] VITALS: BP 144/71
[2019-04-20] MEDS: ceFAZolin SOD 1 GM in D5W MINI-BAG PLUS 50 ML IV SCH (20:06)
[2019-04-20] MEDS ORDERED: HumaLOG INSULIN (NovoLOG) PER UNIT SC SCH (21:00)
[2019-04-21 02:00] VITALS: BP 128/71
[2019-04-21] MEDS: ceFAZolin SOD 1 GM in D5W MINI-BAG PLUS 50 ML IV SCH (04:42)
[2019-04-21 06:00] VITALS: BP 131/86
[2019-04-21] MEDS: HumaLOG INSULIN (NovoLOG) PER UNIT SC SCH (07:30)
[2019-04-21] MEDS: GABAPENTIN 300 MG CAP PO SCH (08:57)
[2019-04-21] MEDS ORDERED: MULTIVITAMINS/MINERALS THERAP 1 TAB PO SCH (09:00)
[2019-04-21] MEDS ORDERED: SIMVASTATIN 40 MG TAB PO SCH (09:00)
[2019-04-21] MEDS ORDERED: VITAMIN D 1,000 INTERNATIONAL UNITS TABLET PO SCH (09:00)
[2019-04-21] MEDS ORDERED: FERROUS GLUCONATE 324 MG TAB PO SCH (09:00)
--- NOTE | 2019-04-30 22:09 | ROPAIN ---
DATE OF PROCEDURE: 04/20/2019 PREOPERATIVE DIAGNOSIS: Left lower extremity pain, neuralgia. POSTOPERATIVE DIAGNOSIS: Left lower extremity extremities pain, neuralgia. PROCEDURE: Spinal column stimulator trial. ANESTHESIA: Local with monitored anesthesia care. SURGEON: Dr. Dionicio De La O PREOPERATIVE NOTE: Mr. Brown is a 68-year-old male patient with a history of left stump pain. Patient had done a trial a month ago, but he was not 100% sure if the device was working for him. The patient expressed that at the beginning of the trial, he felt that the pain was covered but later on it was not, so after discussing alternatives with the patient and in view that the patient was not sure about the implant, we have decided after several months to do a second trial in the patient. Patient denies unexplainable weight loss, fevers, chills, changes in his urinary or bowel control. Patient agrees with the plan. PROCEDURE NOTE: After consent was taken, patient was brought to the procedure room and placed in the prone position. Thoracolumbar area was cleaned with Betadine solution and draped aseptically. Procedure was done under sterile conditions. Under fluoroscopic guidance, a target was selected at the interlaminar level of L2-3. Lidocaine was used to numb the skin and the subcutaneous tissue below it. Epidural Tuohy needle 17 gauge was advanced until the dural space was reached 7 cm deep into the skin by the loss of resistance technique. A 16-contact lead from [employer] was advanced to the level of T11 and T12. The decision was made to place a second lead. At this time we selected the interlaminar level of L3-4. Lidocaine was used to numb the skin and subcutaneous tissue below it. A second Tuohy needle 17 gauge was advanced until we reached the epidural space 7 cm deep into the skin by the loss of resistance technique. A second 16-contact lead from [employer] was advanced through this needle and placed parallel to the first one at the level of T11-12. Extension cables were attached to these leads and attached to the computer system of [employer]. We started to perform a programming. We changed the contact use, voltage, position of the leads. Patient reports stimulation but not adequate coverage of the stump pain. It was a complicated process. We went with the patient in the room during this procedure over 45 minutes, so we decided to look for another position, so we moved the leads then to the position of T8, T9, and T10. We advanced the leads to the medial and posterior aspects of the epidural space until we reached the position. We started again to change the voltage use, the contact use, and after multiple attempts again because of a long procedure, the patient finally reported having coverage of the lower extremity pain covering the stump, so the decision was made to keep the leads at this position. I removed the extension cables. I removed the stylettes, and I attached the leads to the patient's skin using Steri-Strips, Opsite Tegaderms. The patient was sent to the recovery room. He received cefazolin 1 gram IV before we started. There were no complications. We will start the trial.
== END 2019-04-21 11:30 | disposition home or self-care (01) ==
LOC: M SDC 10:37 → M MS5PR 15:15 → M SDC 04-21 11:30
PROVIDERS: ATTEND Anesthesiology
DX: G57.92 Unspecified mononeuropathy of left lower limb (principal); M79.605 Pain in left leg; E11.9 Type 2 diabetes mellitus without complications; D50.9 Iron deficiency anemia, unspecified; Z89.512 Acquired absence of left leg below knee; Z79.84 Long term (current) use of oral hypoglycemic drugs; Z79.899 Other long term (current) drug therapy
CPT/HCPCS: 63650; 76000; 96365; 96366; 96375; C1778; J0131; J0690; J2250; J3010

== ENCOUNTER → 2019-04-23 | Outpatient (CLI) | payer MEDICARE, OTHER ==
[~2019-04-23] MED LIST changes: -LR 1,000 ML IV ONE; +METF-791 PO; -METF500T4 PO; -ceFAZolin SOD 1 GM in D5W MINI-BAG PLUS 50 ML IV ONE
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
== END ==
LOC: M PAIN 12:15
PROVIDERS: ATTEND Anesthesiology
DX: M79.605 Pain in left leg (principal); T87.89 Other complications of amputation stump; G89.29 Other chronic pain; E11.9 Type 2 diabetes mellitus without complications; D50.9 Iron deficiency anemia, unspecified; E78.00 Pure hypercholesterolemia, unspecified; Z87.891 Personal history of nicotine dependence; Z79.84 Long term (current) use of oral hypoglycemic drugs; Z79.899 Other long term (current) drug therapy

== ENCOUNTER → 2022-05-06 | Outpatient (CLI) | payer MEDICARE, OTHER ==
[~2022-05-06] MED LIST changes: +GABA-282 PO; -GABA-843 PO; -METF-791 PO; +METF-838 PO; -SIMV40TA2 PO; +SIMV40TA20 PO
== END ==
LOC: M LABSMTC 10:04
PROVIDERS: ATTEND Orthopaedic Surgery
DX: Z11.52 Encounter for screening for COVID-19 (principal)